=== PATIENT | female | born 1930 ===

== ENCOUNTER 2016-07-29 13:17 | Emergency (ER) | payer OTHER ==
[2016-07-29 13:32] VITALS: BP 133/65
[2016-07-29] MEDS ORDERED: COZAAR50 M1 PO (13:35)
[2016-07-29] MEDS ORDERED: ALLOPURINOL300 M1 PO (13:35)
[2016-07-29] MEDS ORDERED: LIPITOR20 M2 PO (13:36)
--- NOTE | 2016-07-29 14:01 | ED MVC/FALL/TRAUMA COMPLAINT ---
History of Present Illness General Chief Complaint: General Adult Stated Complaint: S/P FALL Source: patient, family Exam Limitations: no limitations Vital Signs & Intake/Output Vital Signs & Intake/Output Vital Signs Date Time Temp Pulse Resp B/P Pulse O2 O2 Flow FiO2 Ox Delivery Rate 07/29 1332 Room Air 07/29 1332 94.4 76 18 133/65 Reconcile Medications Allopurinol 300 MG TABLET 1 TAB PO DAILY GOUT (Reported) Atorvastatin Calcium (Lipitor) 20 MG TABLET 1 TAB PO DAILY CHOLESTEROL ( Reported) Losartan Potassium (Cozaar) 50 MG TABLET 1 TAB PO DAILY HEART (Reported) Triage Note: PT BIBA S/P FALL WHEN BEING TRANSFERRED FROM COMMODE TO WHEELCHAIR WITH AIDE IN ATTENDANCE. NO HEAD STRIKE, NO LOC. Triage Nurses Notes Reviewed? yes HPI: patient presents for evaluation of possible injury sustained status post fall when being transferred from wheelchair to the commode while at home just prior to arrival. According to EMS the patient and her care provider refused transport but given the inability of EMS to contact her power of associate attorney or other family member, she was transported to the emergency department for evaluation. The patient is unable to provide history given her dementia. She has no complaints currently. Past History Travel History Traveled to [place] past 21 day No Medical History Any Pertinent Medical History? see below for history Neurological: Alzheimer's disease, dementia EENT: NONE Cardiovascular: HYPERLIPIDEMIA Respiratory: NONE Gastrointestinal: NONE Hepatic: NONE Renal: NONE Musculoskeletal: NONE Psychiatric: NONE Endocrine: hypothyroidism Surgical History Surgical History: non-contributory Psychosocial History What is your primary language French Tobacco Use: Never used ETOH Use: 6 Family History Hx Contributory? No Review of Systems Review of Systems Constitutional: Reports: no symptoms. Eyes: Reports: no symptoms. Ears, Nose, Throat, Mouth: Reports: no symptoms. Respiratory: Reports: no symptoms. Cardiovascular: Reports: no symptoms. Gastrointestinal/Abdominal: Reports: no symptoms. Genitourinary: Reports: no symptoms. Musculoskeletal: Reports: no symptoms. Skin: Reports: no symptoms. Neurological/Psychological: Reports: no symptoms. All Other Systems: Reviewed and Negative Physical Exam Physical Exam General Appearance: see below Comments: Gen.: Well-nourished, well-developed, no acute respiratory distress. Head: Normocephalic, atraumatic, nontender. Eyes: Normal inspection bilaterally, jeremias, EOMI Ears: Normal inspection bilaterally Nose: Normal inspection Throat/mouth : Moist mucosa Neck: Supple, full range of motion, no goiter, nontender Heart: Regular rate and rhythm, no murmurs rubs or gallops Lungs: Clear to auscultation bilaterally with normal air entry Chest: Nontender Back: Normal range of motion, nontender Abdomen: Soft, nontender, nondistended, normal bowel sounds Pelvis: Stable and nontender Extremities: Normal range of motion grossly, no tenderness, no cyanosis clubbing or edema Neurologic: Cranial nerves grossly intact, speech is clear, patient is alert and oriented to person. Skin: warm and dry and without ecchymoses or soft tissue swelling or erythema Psychiatric: Calm, cooperative, no apparent delusions or hallucinations Core Measures ACS in differential dx? No Severe Sepsis Present: No Septic Shock Present: No Progress Differential Diagnosis: abd injury, C/T/L spine injury, ext injury Plan of Care: Over The counter pain medication as required Departure Departure Disposition: HOME OR SELF CARE Condition: Stable Clinical Impression Primary Impression: Fall Qualifiers: Encounter type: initial encounter Qualified Code: W19.XXXA - Unspecified fall, initial encounter Secondary Impressions: Dementia Qualifiers: Dementia type: unspecified type Dementia behavioral disturbance: without behavioral disturbance Qualified Code: F03.90 - Unspecified dementia without behavioral disturbance Referrals: IKE DORSEY,ORQUIDEA Rodríguez (PCP/Family) Additional Instructions: [id number] pain medication as required. Notify your primary care doctor of this emergency department visit and treatment plan. Return if any concerns or sudden worsening. Thank you for choosing the [facility] Emergency Department for your care. It was a pleasure to serve you today. Alfonso Rodriguez M.D. [facility] Departure Forms: Customer Survey General Discharge Information
== END 2016-07-29 15:07 ==
LOC: ERH 13:17
DX: F03.90 Unspecified dementia, unspecified severity, without behavioral disturbance, psychotic disturbance, mood disturbance, and anxiety (principal); Z04.3 Encounter for examination and observation following other accident; G30.9 Alzheimer's disease, unspecified; E78.5 Hyperlipidemia, unspecified; E03.9 Hypothyroidism, unspecified